=== PATIENT | female | born 1970 | race Caucasian/White ===

== ENCOUNTER → 2016-05-25 | Outpatient (RCR) ==
[2015-11-24 07:18] VITALS: BMI 34.3
--- NOTE | 2016-04-27 11:52 | RS.CXNS ---
Date of scheduled appointment: 04/27/16 Type: Cancel (Patient left voicemail to cancel appointment. Did not give reason for cancellation.)
--- NOTE | 2016-04-28 13:59 | RS.OPPTDN ---
Subjective Date of Note: 04/28/16 Visit #: 2 Date of Evaluation: 04/22/16 Payer Source: Workman's Comp Treatment Diagnosis: Lower back pain, neck and left shoulder pain Current Subjective/complaints:: Patient reports neck and back pain are equally severe today. She says initially, her neck was worse. She reports R thumb, 1st and 2nd digits are numb and have been constantly since her injury. She says she has been busy at work and has not had time to sit down, so her back is very painful. R side of neck worse than L. Pain Assessment - Pain Description Pain Location: Lower back, neck and shoulders with numbness to the R thumb, digits 1 and 2. Pain Description: Constant pain/discomfort Current Pain Intensity: 3-4/10 - Treatment Modality: Ultrasound Parameters/Method Applied: continuous @ 1.5 w/cm2 x 12 mins bilateral UT Patient Position: Sitting - Heat/Cryotherapy Treatment: Hot Pack (cervical and mid to low back in sitting x 20) Interventions - Exercise/Activities/Manual Therapy Exercises/Activities: Patient received Passive CROM all directions with patient performing shoulder shrugs and scap adduction x 10. Patient instructed in postural exercises for home as well. Total minutes of Exercise: 12 Manual Therapy: NA - Charges Total Direct Minutes: 24 Total Treatment Time: 44 Procedures billed for this date of service:: hp, u/s, ex Assessment: Patient with multiple areas of pain and mod muscle guarding present at the UT, MT and lower back. Tenderness noted more on the R lower Cervical paraspinals with U/s. Patient may benefit from trying mechanical traction due to radicular symptoms. Patient Education: Education of diagnosis, Body/Joint mechanics, Home Exercise Program, Home Safety, Activity Modification, Education of Plan of Care Patient demonstrates compliance with HEP?: Yes Short Term Goals Goal #1: Independent in inital HEP. Goal to be met by: 05/14/16 Progress towards Goal:: Progressing Goal #2: Patient is able to drive w/o neck pain. Goal to be met by: 05/14/16 Goal #3: Sleeps thru the night w/o pain awakening her. Goal to be met by: 05/14/16 Goal #4: Improve core muscle strength to 4 - 4+/5 to increase stability. Goal to be met by: 05/14/16 Side Panel Padder Goals Goal #1: Lumbar ROM WFLs w/o increased pain. Goal to be met by: 06/04/16 Goal #2: Greatest pain rating 4/10. Goal to be met by: 06/04/16 Goal #3: Cervical strength 4+ - 5/5 in all muscles to improve stability. Goal to be met by: 06/04/16 Goal #4: Independent with DC HEP to maintain status. Goal to be met by: 06/04/16 Plan PLAN OF CARE EXPIRES ON:: 06/04/16 ORDER # VISITS AND/OR THROUGH DATE: 06/04/2016 PLAN: Continue Plan of Care (May try traction)
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
--- NOTE | 2016-05-04 13:56 | RS.OPPTDN ---
Subjective Date of Note: 05/04/16 Visit #: 4 Date of Evaluation: 04/22/16 Payer Source: Workman's Comp Treatment Diagnosis: Lower back pain, neck and left shoulder pain Current Subjective/complaints:: Reports no complaints following traction on last visit. Reports continued numbness in thumb, index, and ring fingers of right hand. States right shoulder has been hurting for the last two weeks. Pain Assessment - Pain Description Pain Location: Lower back, neck and shoulders with numbness to the R thumb, digits 1 and 2. Pain Description: Constant pain/discomfort Current Pain Intensity: not rated - Treatment Modality: Ultrasound Parameters/Method Applied: X 12 mins to bilateral upper traps and cervical paraspinals @ 1.5 w/cm2 continuous. Patient Position: Sitting - Heat/Cryotherapy Treatment: Hot Pack (to cervical and lumbar spine X 15 mins prior to US and traction.) - Traction Treatment Method: Mechanical, Intermittent, Cervical Patient Position: Supine Amount of Force Applied: 12-13 lbs. Hold Time: 30 sec Rest Time: 5 sec Duration of treatment: 15 mins Interventions - Exercise/Activities/Manual Therapy Exercises/Activities: Stretching into cervical lateral flexion, levator scapula , and rhomboids using tack and stretch method. X 11 mins. Manual Therapy: NA - Charges Total Direct Minutes: 23 mins Total Treatment Time: 68 mins Procedures billed for this date of service:: HP, US, mechanical traction, exercise Assessment: Patient reports continued radicular symptoms into the right hand. Tolerates mechanical traction well, as well as assisted stretching exercises. She demonstrates potential to benefit from continued treatment to relieve her symptoms. Patient Education: Education of diagnosis, Body/Joint mechanics, Home Exercise Program, Home Safety, Activity Modification, Education of Plan of Care Patient demonstrates compliance with HEP?: Yes Short Term Goals Goal #1: Independent in inital HEP. Goal to be met by: 05/14/16 Progress towards Goal:: Progressing Goal #2: Patient is able to drive w/o neck pain. Goal to be met by: 05/14/16 Goal #3: Sleeps thru the night w/o pain awakening her. Goal to be met by: 05/14/16 Goal #4: Improve core muscle strength to 4 - 4+/5 to increase stability. Goal to be met by: 05/14/16 Roper Operator Goals Goal #1: Lumbar ROM WFLs w/o increased pain. Goal to be met by: 06/04/16 Goal #2: Greatest pain rating 4/10. Goal to be met by: 06/04/16 Goal #3: Cervical strength 4+ - 5/5 in all muscles to improve stability. Goal to be met by: 06/04/16 Goal #4: Independent with DC HEP to maintain status. Goal to be met by: 06/04/16 Plan PLAN OF CARE EXPIRES ON:: 06/04/16 ORDER # VISITS AND/OR THROUGH DATE: 06/04/2016 PLAN: Progress Exercises (postural and core exercises)
--- NOTE | 2016-05-06 11:33 | RS.OPPTDN ---
Subjective Date of Note: 05/06/16 Visit #: 5 Date of Evaluation: 04/22/16 Payer Source: Workman's Comp Treatment Diagnosis: Lower back pain, neck and left shoulder pain Current Subjective/complaints:: Patient says that she liked traction. Reports that just when she started feeling relief, the traction relaxed and did not pull any further. Patient says the hand symptoms are constant at this time, but hopes with further traction, it will decrease. Pain Assessment - Pain Description Pain Location: Lower back, neck and shoulders with numbness to the R thumb, digits 1 and 2. Pain Description: Constant pain/discomfort Current Pain Intensity: not rated - Treatment Modality: Ultrasound Parameters/Method Applied: continuous @ 1.5 w/cm2 x 12 mins prior to traction to bilateral UT Patient Position: Sitting - Heat/Cryotherapy Treatment: Hot Pack (cervical and mid to low back in sitting x 20) - Traction Treatment Method: Mechanical, Intermittent, Cervical Patient Position: Supine Amount of Force Applied: 14 Hold Time: 25 Rest Time: 5 Duration of treatment: 15 Interventions - Exercise/Activities/Manual Therapy Exercises/Activities: HEP review Manual Therapy: NA - Charges Total Direct Minutes: 12 Total Treatment Time: 47 Procedures billed for this date of service:: hp, u/s, mechanical traction Assessment: Patient feels relief with current treatment and should progress with traction. Patient Education: Education of diagnosis, Body/Joint mechanics, Home Exercise Program, Home Safety, Activity Modification, Education of Plan of Care Patient demonstrates compliance with HEP?: Yes Short Term Goals Goal #1: Independent in inital HEP. Goal to be met by: 05/14/16 Progress towards Goal:: Progressing Goal #2: Patient is able to drive w/o neck pain. Goal to be met by: 05/14/16 Goal #3: Sleeps thru the night w/o pain awakening her. Goal to be met by: 05/14/16 Goal #4: Improve core muscle strength to 4 - 4+/5 to increase stability. Goal to be met by: 05/14/16 Alf Goals Goal #1: Lumbar ROM WFLs w/o increased pain. Goal to be met by: 06/04/16 Goal #2: Greatest pain rating 4/10. Goal to be met by: 06/04/16 Goal #3: Cervical strength 4+ - 5/5 in all muscles to improve stability. Goal to be met by: 06/04/16 Goal #4: Independent with DC HEP to maintain status. Goal to be met by: 06/04/16 Plan PLAN OF CARE EXPIRES ON:: 06/04/16 ORDER # VISITS AND/OR THROUGH DATE: 06/04/2016 PLAN: Continue Plan of Care
--- NOTE | 2016-05-07 13:02 | RS.OPPTDN ---
Subjective Date of Note: 05/07/16 Visit #: 6 Date of Evaluation: 04/22/16 Payer Source: Workman's Comp Treatment Diagnosis: Lower back pain, neck and left shoulder pain Current Subjective/complaints:: Patient reports traction yesterday seemed to feel more like it was pulling like she needed. Reports manual therapy along medial border of the scapula, causes tingling to increase in the right hand. Pain Assessment - Pain Description Pain Location: Lower back, neck and shoulders with numbness to the R thumb, digits 1 and 2. Pain Description: Constant pain/discomfort Current Pain Intensity: not rated - Treatment Modality: Ultrasound Parameters/Method Applied: X 12 mins to bilateral upper traps and cervical paraspinals @ 1.5 w/cm2 continuous prior to manual therapy and traction. Patient Position: Sitting - Heat/Cryotherapy Treatment: Hot Pack (X 15 mins prior to US) - Traction Treatment Method: Mechanical, Intermittent, Cervical Patient Position: Supine Amount of Force Applied: 14-15 lbs. Hold Time: 15 sec Rest Time: 5 sec Duration of treatment: 20 mins Interventions - Exercise/Activities/Manual Therapy Exercises/Activities: HEP review. Gave tennis ball for self soft tissue mobilization and demonstrated how to use it at home. Also instructed in HS stretch in supine to help decrease back pain. Total minutes of Exercise: X 5 mins Manual Therapy: X 9 mins soft tissue work to decrease firing of active trigger point at the middle traps region along the medial border of the right scapula. This performed just prior to cervical traction. HOME EXERCISE PROGRAM: HS stretch - Charges Total Direct Minutes: 26 mins Total Treatment Time: 61 mins Procedures billed for this date of service:: HP, US, manual therapy, mechanical traction Assessment: Patient demonstrates active trigger point needing manual therapy to relieve some of her radiating symtpoms in the right UE. HS stretching exercises should help address LBP . Patient Education: Education of diagnosis, Body/Joint mechanics, Home Exercise Program, Home Safety, Activity Modification, Education of Plan of Care Patient demonstrates compliance with HEP?: Yes Short Term Goals Goal #1: Independent in inital HEP. Goal to be met by: 05/14/16 Progress towards Goal:: Progressing Goal #2: Patient is able to drive w/o neck pain. Goal to be met by: 05/14/16 Goal #3: Sleeps thru the night w/o pain awakening her. Goal to be met by: 05/14/16 Progress towards Goal:: Progressing Goal #4: Improve core muscle strength to 4 - 4+/5 to increase stability. Goal to be met by: 05/14/16 Women'S Soccer Coach Goals Goal #1: Lumbar ROM WFLs w/o increased pain. Goal to be met by: 06/04/16 Goal #2: Greatest pain rating 4/10. Goal to be met by: 06/04/16 Goal #3: Cervical strength 4+ - 5/5 in all muscles to improve stability. Goal to be met by: 06/04/16 Goal #4: Independent with DC HEP to maintain status. Goal to be met by: 06/04/16 Plan PLAN OF CARE EXPIRES ON:: 06/04/16 ORDER # VISITS AND/OR THROUGH DATE: 06/04/2016 PLAN: Continue Plan of Care
--- NOTE | 2016-05-11 13:11 | RS.OPPTDN ---
Subjective Date of Note: 05/11/16 Visit #: 7 Date of Evaluation: 04/22/16 Payer Source: Workman's Comp Treatment Diagnosis: Lower back pain, neck and left shoulder pain Current Subjective/complaints:: Patient reports traction seems to reduce pain. States she still has tingling at the tip of the right thumb, first and second fingers. Pain Assessment - Pain Description Pain Location: Lower back, neck and shoulders with numbness to the R thumb, digits 1 and 2. Pain Description: Constant pain/discomfort Current Pain Intensity: down to 5/10 - Treatment Modality: Ultrasound Parameters/Method Applied: [id number] at 1.5w/cm2 to the bilateral cervical paraspinals and right mid scapular region prior to MT. Patient in sitting. - Heat/Cryotherapy Treatment: Hot Pack ([id number] to cervical spine and lowback in sitting prior to US. ) - Traction Treatment Method: Mechanical, Intermittent, Cervical Patient Position: Supine Amount of Force Applied: 16-17# Hold Time: 35sec Rest Time: 5sec Duration of treatment: 20mins Interventions - Exercise/Activities/Manual Therapy Exercises/Activities: Reviewed HEP and advised patient to start isometric cervical retraction. Total minutes of Exercise: 3mins Manual Therapy: [id number] soft tissue work and trigger point release along the right mid scapular border and upper traps. Patient in sitting. Total minutes of Manual Therapy: 12mins HOME EXERCISE PROGRAM: HS stretch, cervical isometric retraction - Charges Total Direct Minutes: 29mins Total Treatment Time: 69mins Procedures billed for this date of service:: HP, US, MT, TX mechanical Assessment: Patient able to progress to full 20mins traction treatment. Reporting a reduction in pain rating today. Patient Education: Home Exercise Program Patient demonstrates compliance with HEP?: Yes Short Term Goals Goal #1: Independent in inital HEP. Goal to be met by: 05/14/16 Progress towards Goal:: Progressing Goal #2: Patient is able to drive w/o neck pain. Goal to be met by: 05/14/16 Goal #3: Sleeps thru the night w/o pain awakening her. Goal to be met by: 05/14/16 Progress towards Goal:: Progressing Goal #4: Improve core muscle strength to 4 - 4+/5 to increase stability. Goal to be met by: 05/14/16 Skilled Nursing Goals Goal #1: Lumbar ROM WFLs w/o increased pain. Goal to be met by: 06/04/16 Goal #2: Greatest pain rating 4/10. Goal to be met by: 06/04/16 Progress towards goal: Progressing Goal #3: Cervical strength 4+ - 5/5 in all muscles to improve stability. Goal to be met by: 06/04/16 Goal #4: Independent with DC HEP to maintain status. Goal to be met by: 06/04/16 Plan PLAN OF CARE EXPIRES ON:: 06/04/16 ORDER # VISITS AND/OR THROUGH DATE: 06/04/2016 PLAN: Continue Plan of Care
--- NOTE | 2016-05-13 10:37 | RS.OPPTDN ---
Subjective Date of Note: 05/13/16 Visit #: 8 Date of Evaluation: 04/22/16 Payer Source: Workman's Comp Treatment Diagnosis: Lower back pain, neck and left shoulder pain Current Subjective/complaints:: Patient says she did well with advancement of traction. Says neck and back are not improving as fast as she would like. She says pain travels from one side to the other. Says her low back bothers her with washing dishes and work duties (sitting) bothers her neck. Reports that her tingling/numbness has not changed in intensity or frequency. Pain Assessment - Pain Description Pain Location: Lower back, neck and shoulders with numbness to the R thumb, digits 1 and 2. Pain Description: Constant pain/discomfort Current Pain Intensity: down to 5/10 - Treatment Modality: Ultrasound Parameters/Method Applied: 1.5 w/cm2 x 10 mins bilateral UT AFTER heat Patient Position: Sitting - Heat/Cryotherapy Treatment: Hot Pack (15 mins to the neck and mid/low back in sitting) - Traction Treatment Method: Mechanical, Intermittent, Cervical Patient Position: Supine Amount of Force Applied: 18 Hold Time: 35 Rest Time: 5 Duration of treatment: 20 Traction Treatment Comment: 2 steps Interventions - Exercise/Activities/Manual Therapy Exercises/Activities: Reviewed HEP and advised patient to start isometric cervical retraction. Manual Therapy: [id number] soft tissue work and trigger point release along the right mid scapular border and upper traps. Patient in sitting. HOME EXERCISE PROGRAM: HS stretch, cervical isometric retraction - Charges Total Direct Minutes: 22 Total Treatment Time: 59 Procedures billed for this date of service:: Hp, u/s, MT, Traction ([facility]) Assessment: Patient kinga increased poundage well, but is not able to see any change in radicular symptoms yet. She maintains mod muscle guarding to bilateral UT, but I do not feel any trigger points. Patient Education: Education of diagnosis, Body/Joint mechanics, Home Exercise Program, Home Safety, Activity Modification, Education of Plan of Care Patient demonstrates compliance with HEP?: Yes Short Term Goals Goal #1: Independent in inital HEP. Goal to be met by: 05/14/16 Progress towards Goal:: Progressing Goal #2: Patient is able to drive w/o neck pain. Goal to be met by: 05/14/16 Goal #3: Sleeps thru the night w/o pain awakening her. Goal to be met by: 05/14/16 Progress towards Goal:: Progressing Goal #4: Improve core muscle strength to 4 - 4+/5 to increase stability. Goal to be met by: 05/14/16 Manufacturing Coordinator Goals Goal #1: Lumbar ROM WFLs w/o increased pain. Goal to be met by: 06/04/16 Goal #2: Greatest pain rating 4/10. Goal to be met by: 06/04/16 Progress towards goal: Progressing Goal #3: Cervical strength 4+ - 5/5 in all muscles to improve stability. Goal to be met by: 06/04/16 Goal #4: Independent with DC HEP to maintain status. Goal to be met by: 06/04/16 Plan PLAN OF CARE EXPIRES ON:: 06/04/16 ORDER # VISITS AND/OR THROUGH DATE: 06/04/2016 PLAN: Continue Plan of Care
--- NOTE | 2016-05-14 16:31 | RS.OPPTDN ---
Subjective Date of Note: 05/14/16 Visit #: 9 Date of Evaluation: 04/22/16 Payer Source: Workman's Comp Treatment Diagnosis: Lower back pain, neck and left shoulder pain Current Subjective/complaints:: Patient reports the left leg continues to bother her at night when she lays flat. States she tries to use pillows to get her knees propped up to get pressure off her back. States that does help. States the mid to right lumbosacral area is tender to the touch. Reports left upper traps has been hurting, with specific area of pain that she points to at area of levator scapula. Pain Assessment - Pain Description Pain Location: Lower back, neck and shoulders with numbness to the R thumb, digits 1 and 2. Pain Description: Constant pain/discomfort, tender at middle to left lumbosacral region Current Pain Intensity: unrated - Treatment Modality: Ultrasound Parameters/Method Applied: 12 mins to bilateral upper traps @ 1.5 w/cm2 continuous, then added 12 mins of 1.5 w/cm2 continuous to right lumbosacral region with patient in right sidelying. - Heat/Cryotherapy Treatment: Hot Pack (to cervical spine and lumbar spine while sitting prior to US treatment) - Traction Treatment Method: Mechanical, Intermittent, Cervical Patient Position: Supine Amount of Force Applied: 17 lbs. Hold Time: 30 sec Rest Time: 5 sec Duration of treatment: 20 mins. Interventions - Exercise/Activities/Manual Therapy Exercises/Activities: NA Manual Therapy: [id number] deep tissue work to bilateral upper and middle traps . Area along the right mid scapular border that patient reports reproduces tingling into fingers of the right hand. HOME EXERCISE PROGRAM: HS stretch, cervical isometric retraction - Charges Total Direct Minutes: 38 mins Total Treatment Time: 73 mins Procedures billed for this date of service:: HP, USX2, manual therapy, mechanical traction Assessment: Patient with reports of increased pain on the left upper traps. Continued tingling into the 1st and 2nd fingers of the right hand. Also reports left leg bothering her at night. Added US to the right lumbosacral region to decrease tenderness in this area. She does feel that mechanical traction has helped some with her neck pain. Patient demonstrates compliance with HEP?: Yes Short Term Goals Goal #1: Independent in inital HEP. Goal to be met by: 05/14/16 Progress towards Goal:: Progressing Goal #2: Patient is able to drive w/o neck pain. Goal to be met by: 05/14/16 Progress towards Goal:: Progressing Goal #3: Sleeps thru the night w/o pain awakening her. Goal to be met by: 05/14/16 Progress towards Goal:: Progressing Goal #4: Improve core muscle strength to 4 - 4+/5 to increase stability. Goal to be met by: 05/14/16 Rotating Equipment Engineer Goals Goal #1: Lumbar ROM WFLs w/o increased pain. Goal to be met by: 06/04/16 Goal #2: Greatest pain rating 4/10. Goal to be met by: 06/04/16 Progress towards goal: Progressing Goal #3: Cervical strength 4+ - 5/5 in all muscles to improve stability. Goal to be met by: 06/04/16 Goal #4: Independent with DC HEP to maintain status. Goal to be met by: 06/04/16 Plan PLAN OF CARE EXPIRES ON:: 06/04/16 ORDER # VISITS AND/OR THROUGH DATE: 06/04/2016 PLAN: Progress Exercises
--- NOTE | 2016-05-17 15:26 | RS.CXNS ---
Date of scheduled appointment: 05/17/16 Type: Cancel Reason for Cancel/NS: sick child at home
--- NOTE | 2016-05-19 10:28 | RS.OPPTDN ---
Subjective Date of Note: 05/19/16 Visit #: 10 Date of Evaluation: 04/22/16 Payer Source: Workman's Comp Treatment Diagnosis: Lower back pain, neck and left shoulder pain Current Subjective/complaints:: Patient continues to c/o pain to the L leg and to the L side of neck. Reports prolonged standing and laying down bothers the L leg. Reports the tingling in the fingers may be less and says she feels improvement to the neck as well. Pain Assessment - Pain Description Pain Location: Lower back, neck and shoulders with numbness to the R thumb, digits 1 and 2. Pain Description: Constant pain/discomfort, tender at middle to left lumbosacral region Current Pain Intensity: unrated - Treatment Modality: Ultrasound Parameters/Method Applied: 1.5 w/cm2 continuous to the L UT and then to the L/R lumbar paraspinals x 12 mins each Patient Position: Right Sidelying - Heat/Cryotherapy Treatment: Hot Pack (cervical and mid to low back in sitting x 15) - Traction Treatment Method: Mechanical, Intermittent, Cervical Patient Position: Supine Amount of Force Applied: 19-20 Hold Time: 35 Rest Time: 5 Duration of treatment: 20 Traction Treatment Comment: 2 steps Interventions - Exercise/Activities/Manual Therapy Exercises/Activities: Reviewed home stretches for neck and back, postural exercises and techniques for work, bed mobs. Manual Therapy: no MT performed today HOME EXERCISE PROGRAM: HS stretch, cervical isometric retraction - Charges Total Direct Minutes: 24 Total Treatment Time: 61 Procedures billed for this date of service:: hp, u/s x 2, mechanical traction Assessment: Patient experiencing less intensity with L sided neck pain and R UE radiculopathy. She continues to have L sided back pain that radiates to her leg. Progressive traction kinga well. Patient Education: Education of diagnosis, Body/Joint mechanics, Home Exercise Program, Home Safety, Activity Modification, Education of Plan of Care Patient demonstrates compliance with HEP?: Yes Short Term Goals Goal #1: Independent in inital HEP. Goal to be met by: 05/14/16 Progress towards Goal:: Progressing Goal #2: Patient is able to drive w/o neck pain. Goal to be met by: 05/14/16 Progress towards Goal:: Progressing Goal #3: Sleeps thru the night w/o pain awakening her. Goal to be met by: 05/14/16 Progress towards Goal:: Progressing Goal #4: Improve core muscle strength to 4 - 4+/5 to increase stability. Goal to be met by: 05/14/16 Shipyard Painter Goals Goal #1: Lumbar ROM WFLs w/o increased pain. Goal to be met by: 06/04/16 Goal #2: Greatest pain rating 4/10. Goal to be met by: 06/04/16 Progress towards goal: Progressing Goal #3: Cervical strength 4+ - 5/5 in all muscles to improve stability. Goal to be met by: 06/04/16 Goal #4: Independent with DC HEP to maintain status. Goal to be met by: 06/04/16 Plan PLAN OF CARE EXPIRES ON:: 06/04/16 ORDER # VISITS AND/OR THROUGH DATE: 06/04/2016 PLAN: Continue Plan of Care
--- NOTE | 2016-05-21 11:59 | RS.OPPTDN ---
Subjective Date of Note: 05/21/16 Visit #: 14 Date of Evaluation: 04/22/16 Payer Source: Workman's Comp Treatment Diagnosis: Lower back pain, neck and left shoulder pain Current Subjective/complaints:: Patient reports L foot numbness laterally and continued numbness to the R 1st, 2nd digits, and thumb as well as pain to both sides of the neck and back. She says the L shoulder is better and has more mobility. Says she still is doing well with traction and requests to continue. Pain Assessment - Pain Description Pain Location: Lower back, neck and shoulders with numbness to the R thumb, digits 1 and 2. Pain Description: Constant pain/discomfort, tender at middle to left lumbosacral region Current Pain Intensity: unrated - Treatment Modality: Ultrasound Parameters/Method Applied: continuous @ 1.5 w/cm2 x 12 mins each to bilateral UT and then to bilateral lumbar paraspinals. Patient Position: Right Sidelying - Heat/Cryotherapy Treatment: Hot Pack (cervical and mid to low back in sitting x 15 mins) - Traction Treatment Method: Mechanical, Intermittent, Cervical Patient Position: Supine Amount of Force Applied: 21 Hold Time: 35 Rest Time: 5 Duration of treatment: 20 Traction Treatment Comment: 2 steps Interventions - Exercise/Activities/Manual Therapy Exercises/Activities: Reviewed home stretches for neck and back, postural exercises and techniques for work, bed mobs. Manual Therapy: no MT performed today HOME EXERCISE PROGRAM: HS stretch, cervical isometric retraction - Charges Total Direct Minutes: 24 Total Treatment Time: 59 Procedures billed for this date of service:: hp, u/s x 2, mechanical traction Assessment: Patient continues to have symptoms into the R arm and L leg with tingling/numbness to the R hand (digits 1 and 2, thumb) as well as lateral portion of the L foot. She admits burning to the L UT while performing work duties. Progressed traction well and she presents with increased cspine mobility. Patient Education: Education of diagnosis, Body/Joint mechanics, Home Exercise Program, Home Safety, Activity Modification, Education of Plan of Care Patient demonstrates compliance with HEP?: Yes Short Term Goals Goal #1: Independent in inital HEP. Goal to be met by: 05/14/16 Progress towards Goal:: Progressing Goal #2: Patient is able to drive w/o neck pain. Goal to be met by: 05/14/16 Progress towards Goal:: Progressing Goal #3: Sleeps thru the night w/o pain awakening her. Goal to be met by: 05/14/16 Progress towards Goal:: Progressing Goal #4: Improve core muscle strength to 4 - 4+/5 to increase stability. Goal to be met by: 05/14/16 Assisted Goals Goal #1: Lumbar ROM WFLs w/o increased pain. Goal to be met by: 06/04/16 Goal #2: Greatest pain rating 4/10. Goal to be met by: 06/04/16 Progress towards goal: Progressing Goal #3: Cervical strength 4+ - 5/5 in all muscles to improve stability. Goal to be met by: 06/04/16 Goal #4: Independent with DC HEP to maintain status. Goal to be met by: 06/04/16 Plan PLAN OF CARE EXPIRES ON:: 06/04/16 ORDER # VISITS AND/OR THROUGH DATE: 06/04/2016 PLAN: Continue Plan of Care (Add passive stretching to hams/piriformis, trunk rotation for tightness c/o' and progress traction)
--- NOTE | 2016-06-23 09:23 | RS.OPPTDN ---
Subjective Date of Note: 05/25/16 Visit #: 12 Date of Evaluation: 04/22/16 Payer Source: Workman's Comp Treatment Diagnosis: Lower back pain, neck and left shoulder pain Current Subjective/complaints:: Patient with continued c/o pain to the neck and low back with radiating symptoms. She says neck is much better and that traction is helping. She expresses she wants to continue treatment for her back. Pain Assessment - Pain Description Pain Location: Lower back, neck and shoulders with numbness to the R thumb, digits 1 and 2. Pain Description: Constant pain/discomfort, tender at middle to left lumbosacral region Current Pain Intensity: unrated - Treatment Modality: Ultrasound Parameters/Method Applied: continuous @ 1.5 x 12 mins each to bilateral UT ( mainly the R) and L lumbar paraspinals Treatment Area: R sidelying for back u/s Patient Position: Sitting - Traction Treatment Method: Mechanical, Intermittent, Cervical Patient Position: Supine Amount of Force Applied: 23-24 Hold Time: 30 Rest Time: 5 Duration of treatment: 20 Interventions - Exercise/Activities/Manual Therapy Exercises/Activities: Patient receives passive low back stretching of SKTC, Piriformis, HS, Fig 4, and lower trunk rotation. She performs pillow squeezes, isometric hip flexion/abd, bridging, and SLR x 12. Total minutes of Exercise: 16 Manual Therapy: no MT performed today HOME EXERCISE PROGRAM: HS stretch, cervical isometric retraction - Charges Total Direct Minutes: 40 Total Treatment Time: 60 Procedures billed for this date of service:: usx2, ex, mechanical traction Assessment: Patient progressing with decreased neck pain, but no change with regards to her back. Patient Education: Education of diagnosis, Body/Joint mechanics, Home Exercise Program, Home Safety, Activity Modification, Education of Plan of Care Short Term Goals Goal #1: Independent in inital HEP. Goal to be met by: 05/14/16 Progress towards Goal:: Progressing Goal #2: Patient is able to drive w/o neck pain. Goal to be met by: 05/14/16 Progress towards Goal:: Progressing Goal #3: Sleeps thru the night w/o pain awakening her. Goal to be met by: 05/14/16 Progress towards Goal:: Progressing Goal #4: Improve core muscle strength to 4 - 4+/5 to increase stability. Goal to be met by: 05/14/16 Band Instrument Repairer Goals Goal #1: Lumbar ROM WFLs w/o increased pain. Goal to be met by: 06/04/16 Goal #2: Greatest pain rating 4/10. Goal to be met by: 06/04/16 Progress towards goal: Progressing Goal #3: Cervical strength 4+ - 5/5 in all muscles to improve stability. Goal to be met by: 06/04/16 Goal #4: Independent with DC HEP to maintain status. Goal to be met by: 06/04/16 Plan PLAN OF CARE EXPIRES ON:: 06/04/16 ORDER # VISITS AND/OR THROUGH DATE: 06/04/2016 PLAN: Progress Exercises (Finish up one more week of PT)
== END ==
DX: M54.5 Low back pain (principal)

== ENCOUNTER 2016-06-01 08:15 | Outpatient (RCR) ==
[2015-11-24 07:18] VITALS: BMI 34.3
--- NOTE | 2016-05-27 12:23 | RS.OPPTDN ---
Subjective Date of Note: 05/27/16 Visit #: 13 Date of Evaluation: 04/22/16 Payer Source: Workman's Comp Treatment Diagnosis: Lower back pain, neck and left shoulder pain Current Subjective/complaints:: Patient indicates her 4th and 5th toes and lateral portion of the L foot and L SI and posterior knee is still sore and more C/c than the neck currently. Says she does not return to the MD until 06/07. Pain Assessment - Pain Description Pain Location: Lower back, neck and shoulders with numbness to the R thumb, digits 1 and 2. Pain Description: Constant pain/discomfort, tender at middle to left lumbosacral region Current Pain Intensity: unrated - Treatment Modality: Ultrasound Parameters/Method Applied: continuous @ 1.5 w/cm2 x 12 mins to the bilateral lumbar paraspinals and SI joints as well as same parameters to the the bilateral UT in sitting Patient Position: Right Sidelying - Traction Treatment Method: Mechanical, Intermittent, Cervical Patient Position: Supine Amount of Force Applied: 25 Hold Time: 35 Rest Time: 5 Duration of treatment: 20 Traction Treatment Comment: 2 steps. Kinga increased poundage well Interventions - Exercise/Activities/Manual Therapy Exercises/Activities: Patient receives passive stretching of SKTC, Piriformis, Lower trunk rotation, Fig 4, and HS bilaterally x 4 reps. REviewed trunk stability for home. Total minutes of Exercise: 15 Manual Therapy: no MT performed today HOME EXERCISE PROGRAM: HS stretch, cervical isometric retraction - Charges Total Direct Minutes: 39 Total Treatment Time: 59 Procedures billed for this date of service:: US x 2, mechanical traction, EX Assessment: Patient kinga progressive traction and stretching well. She remains with continued radicular symptoms to the L LE to the foot (last 2 digits and lateral surface). She is seeing improvement with her neck at this time. Patient Education: Education of diagnosis, Body/Joint mechanics, Home Exercise Program, Home Safety, Activity Modification, Education of Plan of Care Patient demonstrates compliance with HEP?: Yes Short Term Goals Goal #1: Independent in inital HEP. Goal to be met by: 05/14/16 Progress towards Goal:: Progressing Goal #2: Patient is able to drive w/o neck pain. Goal to be met by: 05/14/16 Progress towards Goal:: Progressing Goal #3: Sleeps thru the night w/o pain awakening her. Goal to be met by: 05/14/16 Progress towards Goal:: Progressing Goal #4: Improve core muscle strength to 4 - 4+/5 to increase stability. Goal to be met by: 05/14/16 Detention Goals Goal #1: Lumbar ROM WFLs w/o increased pain. Goal to be met by: 06/04/16 Goal #2: Greatest pain rating 4/10. Goal to be met by: 06/04/16 Progress towards goal: Progressing Goal #3: Cervical strength 4+ - 5/5 in all muscles to improve stability. Goal to be met by: 06/04/16 Goal #4: Independent with DC HEP to maintain status. Goal to be met by: 06/04/16 Plan PLAN OF CARE EXPIRES ON:: 06/04/16 ORDER # VISITS AND/OR THROUGH DATE: 06/04/2016 PLAN: Progress Exercises (progress traction for one more week per order, follow up with MD since new symptoms are arising)
--- NOTE | 2016-06-01 10:09 | RS.OPPTDN ---
Subjective Date of Note: 06/01/16 Visit #: 14 Date of Evaluation: 04/22/16 Payer Source: Workman's Comp Treatment Diagnosis: Lower back pain, neck and left shoulder pain Current Subjective/complaints:: Patient says she continues to have numbness and tingling to the L LE to the foot mainly (lateral portion), but these symptoms are better to the R hand (now only to the 1st digit instead of thumb and 2nd digit). Pain Assessment - Pain Description Pain Location: Lower back, neck and shoulders with numbness to the R thumb, digits 1 and 2. Pain Description: Constant pain/discomfort, tender at middle to left lumbosacral region Current Pain Intensity: unrated - Treatment Modality: Ultrasound Parameters/Method Applied: continuous @ 1.5 w/cm2 x 12 mins each to the bilateral UT and lumbar paraspinals Patient Position: Right Sidelying - Traction Treatment Method: Mechanical, Intermittent, Cervical Patient Position: Supine Amount of Force Applied: 24-25 Hold Time: 35 Rest Time: 5 Duration of treatment: 20 Traction Treatment Comment: 2 steps Interventions - Exercise/Activities/Manual Therapy Exercises/Activities: Patient receives passive stretching of SKTC, Piriformis, Lower trunk rotation, Fig 4, and HS bilaterally x 4 reps. Performs pillow squeezes, isometric hip flexion/abd. REviewed trunk stability for home. Total minutes of Exercise: 15 Manual Therapy: no MT performed today HOME EXERCISE PROGRAM: HS stretch, cervical isometric retraction - Charges Total Direct Minutes: 39 Total Treatment Time: 59 Procedures billed for this date of service:: us x2, mechanical traction, ex Assessment: Patient has not had any change with regards to LBP or radicular symptoms to the L LE. She has had some decrease in tingling to the R hand, but remains constant to the L foot. She maintains neck pain and has some difficulty kinga job duties. Patient shows slight increase in flexibility to the low back with stretches. She needs to consistently work on trunk stability and postural exercises at home and self correct or perform postural improvements at work. Patient Education: Education of diagnosis, Body/Joint mechanics, Home Exercise Program, Home Safety, Activity Modification, Education of Plan of Care Patient demonstrates compliance with HEP?: Yes Short Term Goals Goal #1: Independent in inital HEP. Goal to be met by: 05/14/16 Progress towards Goal:: Progressing Comments:: Needs to be consistent Goal #2: Patient is able to drive w/o neck pain. Goal to be met by: 05/14/16 Progress towards Goal:: Progressing Goal #3: Sleeps thru the night w/o pain awakening her. Goal to be met by: 05/14/16 Progress towards Goal:: No Change Comments:: related to the L LE Goal #4: Improve core muscle strength to 4 - 4+/5 to increase stability. Goal to be met by: 05/14/16 Progress towards Goal:: No Change (Can maintain at home) [facility] Goals Goal #1: Lumbar ROM WFLs w/o increased pain. Goal to be met by: 06/04/16 Progress towards goal: Progressing Goal #2: Greatest pain rating 4/10. Goal to be met by: 06/04/16 Progress towards goal: Progressing Comments: neck is somewhat better Goal #3: Cervical strength 4+ - 5/5 in all muscles to improve stability. Goal to be met by: 06/04/16 Goal #4: Independent with DC HEP to maintain status. Goal to be met by: 06/04/16 Progress towards goal: Progressing Plan PLAN OF CARE EXPIRES ON:: 06/04/16 ORDER # VISITS AND/OR THROUGH DATE: 06/04/2016 PLAN: Plan for Discharge (Plan for discharge as no significant progress has been made. She is to return to MD 06/07/16.)
--- NOTE | 2016-07-21 16:23 | RS.QUICKDC ---
Discharge from PT Date of Discharge: 07/21/16 Number of Visits: 14 Reason for Discharge: Patient has attended alloted approved visits and had made only minimal progress regarding the neck and back. She had c/o radicular symptoms to the R UE and L shoulder pain. She had received modification of treatment including heat, ultrasound, cervical traction, and therex. She had received postural education/ex and HEP of cevical stretches and trunk stability/ lumbar stretching. Patient demonstrated SKTC and HS WNL and Cspine ROM WNL. She needs ongoing postural strengthening, which she is able to do independently with given HEP including tbands and self correction while sitting at work. See daily notes for specific treatment. No further skilled need at this time as no significant improvement has been made.
== END 2016-06-22 ==
DX: M54.5 Low back pain (principal)